=== PATIENT | female | born 1985 | race African-American/Black ===

== ENCOUNTER 2019-04-26 15:08 | Emergency (ER) | payer OTHER ==
[~2019-04-26] VITALS: Ht 170.2 cm; Wt 100.0 kg
[2019-04-26] MEDS ORDERED: IPRATROPIUM BROMIDE (0.02%) 0.5MG/2.5ML NEB HHN STA (15:31)
[2019-04-26] MEDS ORDERED: METHYLPREDNISOLONE SOD SUCC 125 MG/2 ML VIAL IV STA (15:31)
[2019-04-26] MEDS ORDERED: ONDANSETRON HCL 4MG/2ML INJ IV STA (15:31)
[2019-04-26] MEDS ORDERED: ALBUTEROL (0.083%) 2.5MG/3ML NEB HHN STA (15:31)
[2019-04-26] MEDS ORDERED: SODIUM CHLORIDE 0.9% 1,000 ML IV ONE (15:31)
[2019-04-26 16:29] LABS: BASOPHILS % 0.7 % (0.0-2.0); EOSINOPHILS % 2.1 % (0.0-5.0); HEMATOCRIT. 41.9 % (36.0-48.0); HEMOGLOBIN. 13.7 g/dL (12.0-16.0); LYMPHOCYTES % 21.7 % (20.0-50.0); MEAN CORPUSCULAR HEMOGLOBIN 26.8 pg (28.0-32.0); MEAN CORPUSCULAR VOLUME 81.9 fL (81.0-99.0); MEAN PLATELET VOLUME 9.1 fl (7.4-10.4); MONOCYTES % 6.4 % (2.0-8.0); NEUTROPHILS % 69.1 % (40.0-76.0); PLATELET 341 x1000/uL (130-400); RED BLOOD CELL COUNT 5.11 mill/uL (4.2-5.4); RED CELL DISTRIBUTION WIDTH 13.9 % (11.6-14.6)
[2019-04-26 16:32] LABS: CLARITY URINE CLOUDY (CLEAR); COLOR URINE YELLOW (YELLOW); KETONES URINE NEGATIVE (NEGATIVE); LEUKOCYTE ESTERASE URINE NEGATIVE (NEGATIVE); NITRITE URINE NEGATIVE (NEGATIVE); OCCULT BLOOD URINE NEGATIVE (NEGATIVE); PH URINE 7.5 (4.5-8.0); PROTEIN URINE NEGATIVE (NEGATIVE); SPECIFIC GRAVITY URINE 1.016 (1.005-1.030)
[2019-04-26 16:34] LABS: CHLORIDE 105 mEq/L (98-107)
[2019-04-26 16:57] LABS: *AMPHETAMINES SCREEN URINE NEGATIVE (NEGATIVE); *BARBITURATES SCREEN URINE NEGATIVE (NEGATIVE); *BENZODIAZEPINES SCREEN URINE NEGATIVE (NEGATIVE); *COCAINE SCREEN URINE NEGATIVE (NEGATIVE); METHADONE URINE SCREEN NEGATIVE (NEGATIVE); OPIATES URINE SCREEN NEGATIVE (NEGATIVE); PHENCYCLIDINE URINE SCREEN NEGATIVE (NEGATIVE)
[2019-04-26 16:59] LABS: CANNABINOID URINE SCREEN PRESUMTIVE POSITIVE (NEGATIVE)
[2019-04-26 18:12] VITALS: BP 130/85
== END 2019-04-26 18:16 | disposition home or self-care (01) ==
LOC: ER 15:08
DX: J45.901 Unspecified asthma with (acute) exacerbation (principal); R11.10 Vomiting, unspecified; R19.7 Diarrhea, unspecified; F12.10 Cannabis abuse, uncomplicated; F41.9 Anxiety disorder, unspecified; R05 Cough
CPT/HCPCS: 36415; 71045; 80053; 80305; 81003; 81025; 83690; 85025; 94640; 96361; 96374; 96375; 99284; J2405; J2930; J7030; J7611; Z7610

== ENCOUNTER 2022-03-03 14:38 | Emergency (ER) | payer MEDICAID, OTHER ==
[~2022-03-03] VITALS: Ht 165.1 cm; Wt 95.0 kg
[2022-03-03 14:41] VITALS: BP 130/95
[2022-03-03] MEDS ORDERED: IBUPROFEN 600MG TABLET PO ONE (15:45)
[2022-03-03] MEDS ORDERED: TETANUS, DIPHTHERIA, PERTUSSIS VAC/PF 0.5ML (>10YR OLD) IM ONE (15:45)
[2022-03-03] MEDS ORDERED: BACITRACIN ZINC OINT UDPKT TOP ONE (19:00)
[2022-03-03] MEDS ORDERED: LIDOCAINE HCL/EPINEPHRINE 1%-EPI 1:100,000 20 ML VIAL INFIL ONE (19:00)
[2022-03-03] MEDS ORDERED: IBUP-2029 MT (19:18)
[2022-03-03] MEDS ORDERED: CEPH500C2 MT (19:18)
== END 2022-03-03 19:43 | disposition home or self-care (01) ==
LOC: ER 14:38
DX: S01.81XA Laceration without foreign body of other part of head, initial encounter (principal); F41.9 Anxiety disorder, unspecified; J45.909 Unspecified asthma, uncomplicated; Z98.890 Other specified postprocedural states; Y04.0XXA Assault by unarmed brawl or fight, initial encounter; Y93.89 Activity, other specified; Y92.488 Other paved roadways as the place of occurrence of the external cause
CPT/HCPCS: 70450; 90471; 90715; 99284; J3490